=== PATIENT | male | born 1960 | race Caucasian/White ===

== ENCOUNTER → 2021-07-02 | Day surgery (SDC) | payer OTHER ==
[~2021-07-02] VITALS: Ht 160 cm; Wt 86.2 kg
[~2021-07-02] MED LIST: ALLERGY SYRING1 EAC2 SC; ASCORBIC ACID500 MG PO; ASPIRIN EC81 M1 PO; ATORVASTATIN CA80 MG PO; ESCITALOPRAM OX10 MG PO; FLONASE ALLER15.8 ML; HYDROCHLOROTH12.5 MG PO; LISINOPRIL40 MG PO; LORATADINE10 MG PO; LOVENOX80 MG/0.8 SC; METFORMIN HCL500 M3 PO; MONTELUKAST SOD10 MG PO; PROAIR HFA8.5 GM PO; TAMSULOSIN HCL0.4 MG PO; WARFARIN SODIUM5 MG PO
[2021-07-02 09:16] LABS: INR 1.1 (0.9-1.2); PROTHROMBIN TIME 13.6 SECONDS (11.8-13.4); PTT 28.6 SECONDS (24.4-34.7)
== END | disposition home or self-care (01) ==
LOC: FAS 07:48
PROVIDERS: Student in an Organized Health Care Education/Training Program
DX: Z12.11 Encounter for screening for malignant neoplasm of colon (principal); D12.5 Benign neoplasm of sigmoid colon; K64.8 Other hemorrhoids; D50.9 Iron deficiency anemia, unspecified; I10 Essential (primary) hypertension; G47.30 Sleep apnea, unspecified; E11.9 Type 2 diabetes mellitus without complications; E78.5 Hyperlipidemia, unspecified; Z86.010 Personal history of colon polyps; Z86.73 Personal history of transient ischemic attack (TIA), and cerebral infarction without residual deficits; Z99.89 Dependence on other enabling machines and devices; Z95.2 Presence of prosthetic heart valve; Z96.642 Presence of left artificial hip joint; Z87.891 Personal history of nicotine dependence; Z79.01 Long term (current) use of anticoagulants; Z79.82 Long term (current) use of aspirin; Z79.84 Long term (current) use of oral hypoglycemic drugs; Z79.899 Other long term (current) drug therapy; Z72.89 Other problems related to lifestyle
CPT/HCPCS: 36415; 85610; 85730; J2704; J7120